=== PATIENT | female | born 1985 | race African-American/Black ===

== ENCOUNTER 2024-03-19 16:18 | Emergency (ER) | payer MEDICAID, OTHER ==
[~2024-03-19] VITALS: Ht 160 cm; Wt 65.7 kg
[2024-03-19 16:24] VITALS: BP 132/51; PULSE 96; RESP 18; O2SAT 98
== END 2024-03-19 16:31 | disposition left against medical advice (07) ==
LOC: ER 16:18
DX: S60.411A Abrasion of left index finger, initial encounter (principal); Z53.21 Procedure and treatment not carried out due to patient leaving prior to being seen by health care provider; W22.8XXA Striking against or struck by other objects, initial encounter; Y93.89 Activity, other specified; Y92.89 Other specified places as the place of occurrence of the external cause; Y99.8 Other external cause status